=== PATIENT | male | born 2000 | race Two or more races ===

== ENCOUNTER 2021-06-25 14:00 | Day surgery (SDC) | payer OTHER ==
[~2021-06-25 14:00] MED LIST: GASTROGRAFIN 30 ML BOT ONE; Iopamidol-370 76% 500 ML 1 ML ONE
[2021-06-25 15:35] LABS: #Lymphocytes 0.8 thou/uL (1.20-3.40); #Monocytes 0.8 thou/uL (0.11-0.59); #Neutrophils 11.5 thou/uL (1.40-6.50); %Basophils 0.3 % (0.0-1.0); %Eosinophils 0.1 % (0.0-10.0); %Neutrophils 87.5 % (31.0-61.0); Hemoglobin 16.4 g/dL (14.0-18.0); Mean Corpuscular Hemoglobin 34.2 pg (25.0-35.0); Mean Platelet Volume 7.6 fL (7.4-10.4); Platelet Count 160 thou/uL (130-400); White Blood Cell (WBC) Count 13.2 thou/uL (4.8-10.8)
[2021-06-25 15:58] LABS: ALT (SGPT) 18 U/L (8-55); AST (SGOT) 18 U/L (5-34); Albumin 4.9 g/dL (3.5-5.0); Alkaline Phosphatase 83 U/L (50-130); Anion Gap 14 mmol/L (10-20); BUN (Urea Nitrogen) 16 mg/dL (8.9-20.6); Bilirubin, Total 1.4 mg/dL (0.2-1.2); Calc. Creatinine Clearance 0 mL/min (70-130); Calcium 10.2 mg/dL (7.8-10.44); Carbon Dioxide 25 mmol/L (22-29); Chloride 101 mmol/L (98-107); Globulin 3.3 g/dL (2.4-3.5); Glucose 108 mg/dL (70-105); Lipase 30 U/L (8-78); Potassium 4.2 mmol/L (3.5-5.1); Protein, Total 8.2 g/dL (6.0-8.3); Sodium 136 mmol/L (136-145)
[2021-06-25 16:52] LABS: Bilirubin Negative (Negative); Blood, Urine Negative (Negative); Clarity Turbid (Clear); Glucose, Urine (Dipstick) Normal (Negative); Ketone, Urine 40 mg/dL (Negative); Leukocyte Negative Leu/uL (Negative); Nitrite Negative (Negative); Protein, Urine (Dipstick) 20 mg/dL (Neg-Trace); Specific Gravity, Urine 1.031 (1.002-1.036); Urobilinogen Normal mg/dL (Less than 2); pH, Urine 7.5 (5.0-9.0)
[2021-06-25] MEDS ORDERED: Piperacillin/Tazobactam 4.5 GM VIAL ONE (18:52)
[2021-06-25 20:19] LABS: SARS-CoV-2 NAA Rapid Test Not Detected (NotDetected)
[2021-06-25] MEDS ORDERED: Xylocaine 1% w/ Epi 1:100K 10 ML VIAL ONE (21:48)
[2021-06-25] MEDS ORDERED: Bupivacaine 0.25% HCL 30 ML VIAL ONE (21:48)
[2021-06-25] MEDS ORDERED: Fentanyl 250 MCG/5 ML VIAL ONE ×2 (21:56→23:32)
[2021-06-25] MEDS ORDERED: Metoclopramide HCl 10 MG/2 ML VIAL ONE (22:20)
[2021-06-25] MEDS ORDERED: Dexamethasone 20 MG/5 ML VIAL ONE (22:20)
[2021-06-25] MEDS ORDERED: PHENYLEPHRINE-NS 100 MCG/ML 10 ML SYRINGE ONE (22:20)
[2021-06-25] MEDS ORDERED: PROPOFOL 200 MG/20 ML VIAL ONE (22:20)
[2021-06-25] MEDS ORDERED: Ketorolac Tromethamine 30 MG/ML VIAL ONE (22:20)
[2021-06-25] MEDS ORDERED: Ondansetron PF 4 MG/2 ML Vial ONE (22:20)
[2021-06-25] MEDS ORDERED: Glycopyrrolate 0.2 MG/ML 5 ML SYRINGE ONE (22:20)
[2021-06-25] MEDS ORDERED: Lidocaine 1% PF 5 ML VIAL ONE (22:20)
[2021-06-25] MEDS ORDERED: Rocuronium Bromide 10 MG/ML (10ML VIAL) ONE (22:20)
[2021-06-25] MEDS ORDERED: HYDROcodone/Acetaminophen 5/325 mg Tablet ONE (23:54)
== END 2021-06-26 02:02 | disposition home or self-care (01) ==
LOC: ERS 14:00 → SDC/OP 22:13
PROVIDERS: ATTEND Surgery
PROC: 0DTJ4ZZ Resection of Appendix, Percutaneous Endoscopic Approach (ICD-10-PCS; principal; 2021-06-25)
DX: K35.80 Unspecified acute appendicitis (principal); Z20.822 Contact with and (suspected) exposure to COVID-19
CPT/HCPCS: 36415; 74177; 80053; 81003; 83690; 85025; 88304; 96365; J1100; J1885; J2405; J2543; J2704; J2765; J3010; Q9963; Q9967; S0020; U0002